=== PATIENT | female | born 1960 | race Caucasian/White ===

== ENCOUNTER 2025-03-16 22:02 | Emergency (ER) | payer SELFPAY ==
[~2025-03-16] VITALS: Ht 167.6 cm; Wt 78.0 kg
[2025-03-16 22:07] VITALS: O2SAT 98
[2025-03-16] MEDS: HYDROCODONE/ACETAMINOPHEN 5/325MG TABLET PO ONE (23:17)
[2025-03-16] MEDS: KETOROLAC 30MG/ML VIAL IM ONE (23:19)
[2025-03-17] MEDS ORDERED: HYDR-4001 MT (02:17)
[2025-03-17] MEDS ORDERED: IBUP-1455 MT (02:17)
[2025-03-17 04:25] VITALS: BP 172/90; PULSE 88; RESP 16; TEMP 36.7; O2SAT 98
== END 2025-03-17 04:26 | disposition home or self-care (01) ==
LOC: ER 22:02
DX: S92.311A Displaced fracture of first metatarsal bone, right foot, initial encounter for closed fracture (principal); S80.01XA Contusion of right knee, initial encounter; S80.02XA Contusion of left knee, initial encounter; S70.01XA Contusion of right hip, initial encounter; I10 Essential (primary) hypertension; E11.9 Type 2 diabetes mellitus without complications; H53.2 Diplopia; Z79.899 Other long term (current) drug therapy; X58.XXXA Exposure to other specified factors, initial encounter; Y93.89 Activity, other specified; Y92.89 Other specified places as the place of occurrence of the external cause; Y99.8 Other external cause status
CPT/HCPCS: 99285; 29515; 73552; 73562; 73610; 73630; 96372; 72192; J1885